=== PATIENT | male | born 1975 | race Caucasian/White ===

== ENCOUNTER 2023-02-17 14:57 | Emergency (ER) | payer BC, SELFPAY ==
[2023-02-17 15:00] VITALS: BP 143/86; PULSE 71; RESP 18; TEMP 36.8; O2SAT 95; BMI 22.5
--- NOTE | 2023-02-17 15:09 | CRLHL7_ITS ---
For Patients: As a result of the Cures Act, medical imaging exams and procedure reports are released immediately into your electronic medical record. You may view this report before your referring provider. If you have questions, please contact your health care provider. INDICATION: Low oxygen, chest pain, lightheaded and vomiting TECHNIQUE: Chest 2 views. COMPARISON: None. FINDINGS: Borderline cardiomegaly. The pulmonary vasculature is within normal limits. Lungs are clear without focal consolidation, pleural effusion or pneumothorax. Bones are unremarkable. IMPRESSION: Borderline cardiomegaly. Otherwise no acute process. Dictated by Tatiana Goldman MD @ 02/17/2023 4:28:29 PM Dictated by: Tatiana Goldman MD @ 02/17/2023 16:29:57 (Electronically Signed)
--- NOTE | 2023-02-17 15:14 | ED_ITS ---
HPI - General Adult General Time Seen by Provider: 15:14 Date Seen: 02/17/23 Chief complaint: Cough Stated complaint: Low o2, chest pain, lightheaded, vomiting Time Seen by Provider: 02/17/23 15:04 Source: patient Mode of arrival: ambulatory Limitations: no limitations History of Present Illness HPI narrative: Patient is a 47 white male smoker with a cough. He had some sinus congestion was seen 2 days ago in Urgent Care, had negative COVID testing. He does smoke. He is coughed in spasms. He has had no rigors. He has been on prednisone, Benadryl, Augmentin. He states he continues to have spasms of cough. He was told in Urgent Care dated low oxygen level but his O2 sat here is 95% on room air. He does not have a temperature. Does have a history of asthma. Does have an inhaler at home and with him that he carries an is using regularly. No leg swelling or edema. No clotting problems. Patient has had coughing to the point of being gagging and almost vomiting. Related Data Home Medications Medication Instructions Recorded Confirmed albuterol sulfate 90 mcg/actuation 1 - 2 puff inhalation Q6H PRN 11/24/22 02/17/23 aerosol inhaler (Ventolin HFA) dyspnea guaifenesin [Mucinex] PO 11/24/22 02/17/23 diphenhydramine HCl 25 mg capsule 25 mg PO QHS PRN 02/14/23 02/17/23 (Benadryl) Previous Rx's Medication Instructions Recorded albuterol sulfate 90 mcg/actuation 2 puff inhalation Q4-6H PRN 02/14/23 aerosol inhaler shortness of breath or wheezing #8.5 grams amoxicillin 875 mg-potassium 1 tab PO BID 7 days #14 tabs 02/14/23 clavulanate 125 mg tablet prednisone 20 mg tablet 40 mg (2 x 20 mg) PO QDAY 5 days 02/14/23 #10 tabs doxycycline hyclate 100 mg capsule 100 mg PO BID #20 caps 02/17/23 Allergies Allergy/AdvReac Type Severity Reaction Status Date / Time No Known Drug Allergies Allergy Verified 02/17/23 14:31 Review of Systems Status of ROS: Reports: 6 or more systems reviewed and unremarkable except as noted in History and below [facility] Medical History Smoker ?F17.200 - Nicotine dependence, unspecified, uncomplicated (ICD-10) Lower respiratory infection ?J22 - Unspecified acute lower respiratory infection (ICD-10) Asthma exacerbation ?J45.901 - Unspecified asthma with (acute) exacerbation (ICD-10) Social History Smoking Status: Current every day smoker What tobacco products do you use: cigarettes Do you use any of these nicotine containing products: None How often do you have a drink containing alcohol: 2-4 times a month AUDIT-C Alcohol total score: 2 Non-prescribed substance use: denies use Exam Narrative: Exam Narrative: Objective: Vital signs are unremarkable he is afebrile Alert orient x3 HEENT is unremarkable Chest he has got some basilar wheezing, no rales Pulses regular Good peripheral perfusion, neurologic grossly nonfocal. Const: Vital Signs, click to edit/add: Vital Signs - 24 hr 02/17/23 15:00 02/17/23 15:36 Temperature 98.3 F Pulse Rate [Right Pulse Oximeter] 71 73 Respiratory Rate 18 18 Blood Pressure [Ri ght Upper Arm] 143/86 H Pulse Oximetry 95 96 Oxygen Delivery Me thod Room Air Room Air Course Vital Signs Vital signs: Initial Vital Signs Temperature 98.3 F 02/17/23 15:00 Temperature Source Temporal Artery Scan 02/17/23 15:00 Pulse Rate 71 02/17/23 15:00 Respiratory Rate 18 02/17/23 15:00 Blood Pressure 143/86 H 02/17/23 15:00 Blood Pressure Mean 105 02/17/23 15:00 Blood Pressure Position Sitting 02/17/23 15:00 Pulse Oximetry 95 02/17/23 15:00 Oxygen Delivery Method Room Air 02/17/23 15:00 Vital Signs Temperature 98.3 F 02/17/23 15:00 Pulse Rate 71 02/17/23 15:00 Respiratory Rate 18 02/17/23 15:00 Blood Pressure 143/86 H 02/17/23 15:00 Pulse Oximetry 95 02/17/23 15:00 Oxygen Delivery Method Room Air 02/17/23 15:00 Temperature 98.3 F 02/17/23 15:00 Pulse Rate 73 02/17/23 15:36 Respiratory Rate 18 02/17/23 15:36 Blood Pressure 143/86 H 02/17/23 15:00 Pulse Oximetry 96 02/17/23 15:36 Oxygen Delivery Method Room Air 02/17/23 15:36 Medical Decision Making MDM Narrative Medical decision making narrative: 47-year-old white male with sinus congestion upper respiratory infection cough. History of bronchospasm. Patient is completing a course of prednisone I would finish that. I think will transition him to doxycycline 100 mg b.i.d. times 10 days. Would recommend he continue his inhaler as needed. He can continue take some antihistamines such as Benadryl as needed. Light activity recommended adequate fluid intake. I think getting a chest x-ray today would be appropriate. He had a negative COVID test in the urgent care. Recheck with his regular doctor next couple of days. Addendum 3:21 p.m.: The patient's x-ray by my review looks unremarkable. I think we can switch him to doxycycline 100 b.i.d. times 10 days, would hold Augmentin, finished the prednisone, continue the inhaler, light activity, stop smoking. Recheck with primary care in 48 hours certainly sooner change concerns worsening. Discharge Plan Discharge Clinical Impression: Asthma exacerbation, Lower respiratory infection, Smoker Patient Disposition: Home, Self-Care Condition: Stable Additional Instructions: Stop Augmentin for now, will switch to doxycycline 2 times a day for 10 days, finished the prednisone, continue her inhaler, follow-up with primary care in 2- 3 days certainly sooner problems or concerns, stop smoking, return to the ED if worsening. Activity Level: Light activity Discharge Diet: Regular Prescriptions: New doxycycline hyclate 100 mg capsule 100 mg PO BID Qty: 20 0RF No Action guaifenesin [Mucinex] PO albuterol sulfate [Ventolin HFA] 90 mcg/actuation HFA aerosol inhaler 1 - 2 puff inhalation Q6H PRN (Reason: dyspnea) diphenhydramine HCl [Benadryl] 25 mg capsule 25 mg PO QHS PRN prednisone 20 mg tablet 40 mg PO QDAY 5 Days Qty: 10 0RF amoxicillin-pot clavulanate 875-125 mg tablet 1 tab PO BID 7 Days Qty: 14 0RF albuterol sulfate 90 mcg/actuation HFA aerosol inhaler 2 puff inhalation Q4-6H PRN (Reason: shortness of breath or wheezing) Qty: 8.5 1RF Follow Up/Referrals: David Herrera MD [Primary Care Provider] - Stand Alone Forms: Impress[employer]ag[employer] Info Instructions
[2023-02-17 15:36] VITALS: PULSE 73; RESP 18; O2SAT 96
== END 2023-02-17 15:37 | disposition home or self-care (01) ==
LOC: ED 15:23
PROVIDERS: Emergency Provider Family Medicine; PCP Family Medicine
DX: J45.901 Unspecified asthma with (acute) exacerbation (principal); J22 Unspecified acute lower respiratory infection; Z72.0 Tobacco use
CPT/HCPCS: 71046; 99283; 99284